=== PATIENT | female | born 1980 | race Caucasian/White ===

== ENCOUNTER 2020-05-28 19:01 | Observation (INO) | payer BC ==
[~2020-05-28] VITALS: Ht 160 cm; Wt 90.7 kg
[2020-05-28 19:32] LABS: BASOPHILS ABSOLUTE AUTO 0.03 K/mm3 (0.00-0.23); BASOPHILS PERCENT AUTO 0 % (0-2); EOSINOPHILS ABSOLUTE AUTO 0.11 K/mm3 (0.00-0.68); EOSINOPHILS PERCENT AUTO 2 % (0-6); Hematocrit 41.6 % (33.0-51.0); Hemoglobin 13.9 g/dL (11.5-16.0); IMMATURE GRAN ABSOLUTE AUTO 0.02 K/mm3 (0.00-0.10); IMMATURE GRAN PERCENT AUTO 0 % (0-1); LYMPHOCYTES ABSOLUTE AUTO 1.25 K/mm3 (0.84-5.20); LYMPHOCYTES PERCENT AUTO 17 % (21-46); MONOCYTES ABSOLUTE AUTO 0.52 K/mm3 (0.16-1.47); MONOCYTES PERCENT AUTO 7 % (4-13); Mean Corpuscular HGB 30.5 pg (26.0-34.0); Mean Corpuscular HGB Conc 33.4 g/dL (31.5-36.5); Mean Corpuscular Volume 91 fL (80-100); Mean Platelet Volume 8.9 fL (9.1-12.4); NEUTROPHILS ABSOLUTE AUTO 5.41 K/mm3 (1.96-9.15); NEUTROPHILS PERCENT AUTO 74 % (41-73); Platelet Count 287 K/mm3 (150-400); RDW Coefficient Variation 11.7 % (11.7-14.2); RDW Standard Deviation 39.4 fL (35.1-46.3); Red Blood Cell Count 4.55 M/mm3 (3.80-5.20); White Blood Cell Count 7.34 K/mm3 (4.00-11.30)
[2020-05-28 19:59] LABS: Alanine Aminotransfer (ALT/SGP 20 U/L (12-78); Albumin, Blood 3.7 g/dL (3.4-5.0); Alk Phos 71 U/L (50-136); Anion Gap 7 mmol/L (6-16); Aspartate Aminotrans (AST/SGOT 22 U/L (12-37); Bilirubin, Total 0.2 mg/dL (0.1-1.0); Blood Urea Nitrogen 15 mg/dL (8-24); Bun/Creatinine Ratio 16.1 (12.0-20.0); CO2, Blood 23 mmol/L (21-32); Calcium, Blood 8.9 mg/dL (8.5-10.1); Chloride, Blood 107 mmol/L (98-108); Creatinine, Blood 0.93 mg/dL (0.40-1.00); Globulin, Blood 3.8 g/dL (2.2-4.0); Glomerular Filtration Rate >60 (60-); Glucose, Blood 101 mg/dL (70-99); Potassium, Blood 3.6 mmol/L (3.5-5.5); Sodium, Blood 137 mmol/L (136-145); Total Protein, Blood 7.5 g/dL (6.4-8.2)
[2020-05-28] MEDS ORDERED: MINO50 PO (20:34)
[2020-05-28] MEDS ORDERED: LEVSOD150 PO (20:34)
[2020-05-28] MEDS ORDERED: DESV50 PO (20:34)
--- NOTE | 2020-05-28 22:27 | NUR ---
NEW ADMIT FROM ER FOR CHOLELITHIASIS. PT ALERT ORIENTED INDEPENDENT IN ROOM. STATES PAIN IS BETTER AFTER BEING MEDICATED WITH DILAUDID, BUT DOES HAVE SOME NAUSEA POSSIBLY R/T TO DILAUDID. ZOFRAN WAS GIVEN AND IVF STARTED. REVIEWED ORDERS AND PLAN. GALLBLADDER BOOK GIVEN, BLOOD CONSENT SIGNED. NO FURTHER QUESTIONS AT THIS TIME. COVID SWAB DONE AND WILL SEND UA AND U PREG
[2020-05-28 22:37] LABS: Source, Urine Clean Catch
[2020-05-28 22:40] LABS: Bilirubin, Urine Neg (Neg); Blood, Urine 1+ (Neg); Glucose Qualitative, Urine Neg (Neg); Ketones, Urine Neg (Neg); Leukocyte Esterase, Urine Neg (Neg); Nitrite, Urine Neg (Neg); Protein, Urine Neg (Neg); Urobilinogen, Urine NORM (Normal)
[2020-05-28 22:49] LABS: Appearance, Urine Clear (Clear); Color, Urine Yellow (P-Yellow)
[2020-05-28 22:50] LABS: Bacteria Rare /hpf; Red Blood Cells, Urine Not Seen /hpf (0-2); Squamous Epithelial Cells Rare /hpf (Few); White Blood Cells, Urine Not Seen /hpf (0-5)
--- NOTE | 2020-05-28 23:50 | NUR ---
PT C/O OF MILD ITCHING ON FACE. NO RASH NOTED. STATES MAYBE R/T TO PAIN MEDS REQUESTING BENADRYL. NOTIFED DR. KENNEDY, SEE NEW ORDERS.
[2020-05-28 23:56] LABS: Influenza A, PCR Negative (NEGATIVE); Influenza B, PCR Negative (NEGATIVE); Resp Syncytial Virus, PCR Negative (NEGATIVE); SARS-Cov-2 (COVID-19) PCR, MMC Negative (NEGATIVE)
--- NOTE | 2020-05-29 05:04 | NUR ---
PT HAS DONE WELL DURING NIGHT. PAIN IS MANAGED WELL AND NO MORE EPISODES OF NAUSEA. STATES ITCHING HAS SUBSIDED. CONT WITH IVF AND IV ABX ORDERED. SURGICAL PACKET ON CHART, COVID NEGATIVE, PT HAS 18G IV IN RIGHT AC, NPO. CALL LIGHT IN REACH, WILL REPORT OFF TO NEXT SHIFT.
--- NOTE | 2020-05-29 15:24 | NUR ---
PATIENT TO DAY SURGERY AT THIS TIME, SPOUSE ACCOMPANYING.
--- NOTE | 2020-05-29 16:39 | NUR ---
THE PATIENT WAS BROUGHT TO D/S FOR HER PROCEDURE. Patient up to Ambulate independently. Gait steady. Surgical site prepped with 2% Chlorhexidine cloth wipe. Lungs clear T/O to Auscultation. History, Chart, Medications and Allergies reviewed before start of procedure.Pre-Op teaching done. Pt verbalizes understanding. Patient States Post-Procedure ride home has been arranged.
--- NOTE | 2020-05-29 20:17 | NUR ---
PATIENT RETURNED FROM PACU AT APPROX 1915. IN ROOM. PATIENT IS ALERT AND ORIENTED COMPLAINS OF 8/10 PAIN IN RT UPPER AND LOWER QUADRANTS. 4 LAP SITES TO ABD ARE CLEAN AND DRY. DENIES NAUSEA AND VOMITING. 3LNC INCREASED TO 4L NC BIOX 84-95%, ABLE TO COUGH AND DEEP BREATH, TAUGHT PATIENT TO DO THIS AT LEAST EVERY 30 MIN WHILE AWAKE. LUNGS WITH COARSE BS IN UPPER LOBES AND CLEAR IN BASES. DRY COUGH. CALL LIGHT IN REACH, EATING CRACKERS TO ACCOMODATE PO PAIN MEDICATIONS.
--- NOTE | 2020-05-30 05:24 | NUR ---
PATIENT IS UP WITH ONE PERSON STANDBY ASSIST. HER LAP SITES ARE CLEAN. PAIN IS STATED MINIMAL. SHE IS DRINKING CLEAR LIQUIDS WELL. STATES THAT SHE IS READY TO GO HOME THIS MORNING. NO ACUTE CHANGES.
[2020-05-30] MEDS ORDERED: HYDR1TAB94 PO (08:30)
--- NOTE | 2020-05-30 10:30 | NUR ---
discharge instructions reviewed with patient and pt denies any questions regarfing discharge. mare po food and fluids, reports pain is controlled anddenies nausea. pt waiting husbands arrival to transport lionel
--- NOTE | 2020-05-30 12:37 | NUR ---
1235 DISCHARGE DISCHARGED TO HOME WITH
== END 2020-05-30 12:36 | disposition home or self-care (01) ==
LOC: ER 19:01 → SURS 19:02
PROVIDERS: Physician Assistant; ADMIT Surgery
DX: K80.00 Calculus of gallbladder with acute cholecystitis without obstruction (principal); K66.0 Peritoneal adhesions (postprocedural) (postinfection); F41.9 Anxiety disorder, unspecified; E66.9 Obesity, unspecified; Z68.35 Body mass index [BMI] 35.0-35.9, adult; Z23 Encounter for immunization; Z20.828 Contact with and (suspected) exposure to other viral communicable diseases; Z79.899 Other long term (current) drug therapy; Z88.8 Allergy status to other drugs, medicaments and biological substances
CPT/HCPCS: 0241U; 36415; 74300; 76705; 80053; 81001; 81025; 83690; 85025; 88304; 96361-59; 96365-59; 96366; 96375; 96375-59; 96376; 99285-25; A9270; A9270-GY; C1729; G0378; J0295; J1100; J1170; J1885; J2250; J2310; J2405; J2704; J3010; J7030; J7120; Q0163; Q2038

== ENCOUNTER 2020-11-21 06:07 | Day surgery (SDC) | payer BC ==
[~2020-11-21] VITALS: Ht 160 cm; Wt 95.5 kg
[~2020-11-21 06:07] MED LIST: DESV50 PO; ESCI10 PO; HYDR1TAB94 PO; LEVSOD150 PO; MINO50 PO; SPIR50 PO
--- NOTE | 2020-11-21 06:42 | NUR ---
Ambulatory in Day Surgery History, Chart, Medications and Allergies reviewed before start of procedure. Lungs clear T/O to Auscultation. Pre-Op teaching done. Pt verbalizes understanding. Patient confirms NPO status and agrees with scheduled surgery.
--- NOTE | 2020-11-21 10:44 | NUR ---
Dressing to procedure site clean, dry, intact with no visible drainage, swelling, erythema or bruising noted.
--- NOTE | 2020-11-21 11:11 | NUR ---
Discharge instructions reviewed with patient. Patient verbalizes understanding. Copy given to patient to take home. Dressing to procedure site clean, dry, intact with no visible drainage, swelling, erythema or bruising noted. Discharged via wheelchair to private car for ride home.
== END 2020-11-21 11:13 | disposition home or self-care (01) ==
LOC: ORSCMMR 06:07 → ORD 07:30 → ORSCMMR 07:30
PROVIDERS: Surgery
PROC: 0WUF0JZ Supplement Abdominal Wall with Synthetic Substitute, Open Approach (ICD-10-PCS; principal; 2020-11-21 07:30)
DX: K43.2 Incisional hernia without obstruction or gangrene (principal); F17.210 Nicotine dependence, cigarettes, uncomplicated; E03.9 Hypothyroidism, unspecified; Z79.899 Other long term (current) drug therapy; E66.01 Morbid (severe) obesity due to excess calories; Z68.37 Body mass index [BMI] 37.0-37.9, adult
CPT/HCPCS: C1781; J0690; J1100; J1885; J2250; J2405; J2704; J3010; J7120